=== PATIENT | male | born 1960 | race American Indian/Alaskan Native ===

== ENCOUNTER 2022-07-02 00:54 | Emergency (ER) | payer OTHER ==
--- NOTE | 2022-07-02 05:00 | Emergency Department Report ---
ED Abdominal Pain HPI - General Chief Complaint: Abdominal Pain Stated Complaint: ABDOMINAL PAIN Time Seen by Provider: 07/02/22 04:39 Source: patient Mode of arrival: Ambulatory Limitations: No Limitations - History of Present Illness Initial Comments: 62-year-old black male with no past medical history presents to the emergency department for evaluation of 2-day history of abdominal pain, nausea, vomiting, and fever. He states that he has had 2 episodes of vomiting in the past 2 days. He denies diarrhea, dysuria, and penile discharge. He states that pain is intermittent, feels like it moves around, and is 10 out of 10 at its worst. MD Complaint: abdominal pain -: Gradual, days(s) (2) Location: diffuse Radiation: none Migration to: no migration Severity: severe Severity scale (0 -10): 10 Quality: cramping, aching Consistency: intermittent Associated Symptoms: nausea, vomiting, fever. denies: diarrhea, chills, dysuria, hematemesis, hematochezia, melena, hematuria, anorexia, syncope - Related Data Previous Rx's Medication Instructions Recorded Last Taken Type Acetaminophen/Codeine [Tylenol 1 tab PO Q6H PRN #12 tab 07/02/22 Unknown Rx /Codeine # 3 tab] Ondansetron [Zofran Odt] 4 mg PO Q8HR PRN #12 tab.rapdis 07/02/22 Unknown Rx Allergies Allergy/AdvReac Type Severity Reaction Status Date / Time No Known Allergies Allergy Verified 07/02/22 01:51 ED Review of Systems ROS: Stated complaint: ABDOMINAL PAIN Other details as noted in HPI Comment: All other systems reviewed and negative Constitutional: fever. denies: chills ENT: denies: congestion Respiratory: denies: cough, shortness of breath Cardiovascular: denies: chest pain, palpitations Gastrointestinal: abdominal pain, nausea, vomiting. denies: diarrhea, hematemesis, melena, hematochezia Genitourinary: denies: urgency, dysuria, frequency, hematuria, discharge, testicular pain Musculoskeletal: denies: back pain Skin: denies: rash, lesions Neurological: denies: headache, weakness ED Past Medical Hx - Past Medical History Previous Medical History?: Yes - Surgical History Past Surgical History?: Yes - Social History Smoking Status: Unknown if ever smoked Substance Use Type: None - Medications Home Medications: Home Medications Medication Instructions Recorded Confirmed Last Taken Type Acetaminophen/Codeine [Tylenol 1 tab PO Q6H PRN #12 tab 07/02/22 Unknown Rx /Codeine # 3 tab] Ondansetron [Zofran Odt] 4 mg PO Q8HR PRN #12 tab.rapdis 07/02/22 Unknown Rx ED Physical Exam - General Limitations: No Limitations General appearance: alert, in no apparent distress - Head Head exam: Present: atraumatic, normocephalic - Eye Eye exam: Present: normal appearance. Absent: conjunctival injection, periorbital swelling, periorbital tenderness - ENT ENT exam: Present: normal exam - Neck Neck exam: Present: normal inspection, full ROM. Absent: tenderness, lymphadenopathy - Respiratory Respiratory exam: Present: normal lung sounds bilaterally. Absent: respiratory distress, wheezes, rales, rhonchi, stridor, chest wall tenderness - Cardiovascular Cardiovascular Exam: Present: tachycardia, normal heart sounds - GI/Abdominal GI/Abdominal exam: Present: soft, tenderness (Left lower quadrant), normal bowel sounds. Absent: distended, guarding, rebound - Extremities Exam Extremities exam: Present: normal inspection, full ROM, normal capillary refill. Absent: tenderness, pedal edema, joint swelling, calf tenderness - Back Exam Back exam: Present: normal inspection. Absent: CVA tenderness (R), CVA tenderness (L), paraspinal tenderness, vertebral tenderness - Neurological Exam Neurological exam: Present: alert, oriented X3, CN II-XII intact, normal gait - Psychiatric Psychiatric exam: Present: normal affect, normal mood - Skin Skin exam: Present: warm, dry, intact, normal color ED Course Vital Signs 07/02/22 01:46 Temperature 99.9 F H Pulse Rate 106 H Respiratory 18 Rate Blood Pressure 163/114 O2 Sat by Pulse 100 Oximetry ED Medical Decision Making - Lab Data Result diagrams: 07/02/22 04:46 07/02/22 04:46 - Radiology Data Radiology results: report reviewed, image reviewed CT abdomen and pelvis without contrast: FINDINGS: CT abdomen without contrast demonstrates normal appearance of the spleen, pancreas, kidneys, and adrenal glands. Gallbladder is present and without appreciable abnormality. Abdominal aorta is normal. There are a few hypodense masses within the liver. Without contrast it is difficult to determine if these could be metastases or cysts. Otherwise the liver is normal. Trace amount of free fluid is seen surrounding the liver. Within the right mid abdomen there is a soft tissue mass measuring approximately 7 cm in diameter. The mass is arising from the cecum. The mass is causing obstruction of the terminal ileum. The distal ileum is dilated with stool-like material noted throughout the ileum consistent with stasis. Additionally, there is normal-appearing appendix arising from the inferior aspect of the mass. 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 There are a few mildly enlarged lymph nodes surrounding this mass and in the adjacent mesentery. Small amount of loculated fluid is seen in the right lower quadrant slightly inferior to the cecal mass. CT pelvis demonstrates a small amount of free fluid between the seminal vesicles and rectum. No focal inflammatory change or adenopathy is seen within the pelvis. Visualized lung bases are grossly clear. Review of osseous structures is grossly unremarkable. IMPRESSION: 1. There is a 7 cm solid mass in the right mid abdomen which appears to be a mass arising from the cecum. 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 The mass is causing some degree of mechanical obstruction of the small bowel. The distal ileum contains stool- like material consistent with significant stasis. 2. There are several mildly enlarged lymph nodes throughout the right lower quadrant as well as a few nonspecific lesions within the liver. These findings are concerning for metastatic disease. Trace amount of free fluid is seen in the upper abdomen and pelvis as well. - Medical Decision Making 62-year-old black male with no past medical history presents to the emergency department for evaluation of 2-day history of abdominal pain, nausea, vomiting, and fever. He states that he has had 2 episodes of vomiting in the past 2 days. He denies diarrhea, dysuria, and penile discharge. He states that pain is intermittent, feels like it moves around, and is 10 out of 10 at its worst. Patient noted to have tenderness in the abdomen on exam. CT scan positive for cecal mass along with liver lesions. Case and CT scan was reviewed by Dr. Meier who stated that patient was okay to be discharged home to follow-up with oncology. Results were reviewed with patient and he was advised to follow-up with oncology as soon as possible. He was given name of several oncologist to try to call to set up an appointment. He is advised to return to the emergency department if she develops worsening abdominal pain, fever, worsening nausea vomiting, or inability to keep down food and drinks. He verbalizes understanding of and agreement with plan of care. Critical care attestation.: If time is entered above; I have spent that time in minutes in the direct care of this critically ill patient, excluding procedure time. ED Disposition Clinical Impression: Cecum mass, Liver lesion Disposition: 01 HOME / SELF CARE / HOMELESS Is pt being admited?: No Does the pt Need Aspirin: No Condition: Stable Instructions: Colon Mass, Adult Additional Instructions: Follow-up with oncology in the next 2 or 3 days for further evaluation and management. Return to the emergency department if you develop worsening pain, fever, worsening nausea vomiting, or inability to keep any food or liquids down. Prescriptions: Acetaminophen/Codeine [Tylenol /Codeine # 3 tab] 1 tab PO Q6H PRN #12 tab PRN Reason: Pain, Moderate (4-6) Ondansetron [Zofran Odt] 4 mg PO Q8HR PRN #12 tab.rapdis PRN Reason: Nausea And Vomiting Referrals: SUSI SOLIS MD [Staff Physician] - 3-5 Days ISABEL HIGH PA [Physician Clamp Operator] - 3-5 Days TORI MILLAN MD [Staff Physician] - 3-5 Days SAVANNAH URENA DO [Staff Physician] - 3-5 Days GISELA BROUSSARD MD [Staff Physician] - 3-5 Days Forms: Work/School Release Form(ED)
[2022-07-02 05:10] LABS: Hematocrit 33.6 % (35.5-45.6); Hemoglobin 10.8 gm/dl (11.8-15.2); Mean Corpuscular HGB Conc 32 % (32-34); Mean Corpuscular Volume 81 fl (84-94); Platelet Count 359 K/mm3 (140-440); Red Blood Count 4.15 M/mm3 (3.65-5.03); Red Cell Distribution Width 14.1 % (13.2-15.2)
[2022-07-02 05:28] LABS: Alanine Aminotransferase 9 units/L (7-56); Albumin 4.6 g/dL (3.9-5); BUN/Creatinine Ratio 17; Blood Urea Nitrogen 17 mg/dL (9-20); Calcium 9.1 mg/dL (8.4-10.2); Hemolysis Index 2
--- NOTE | 2022-07-02 05:40 | Cat Scan Report ---
CT abdomen pelvis wo con INDICATION / CLINICAL INFORMATION: fever, abdominal pain. TECHNIQUE: Axial CT imaging of abdomen and pelvis was obtained without contrast. Coronal and sagittal reformatte d imaging obtained and reviewed. All CT scans at this location are performed using CT dose reduction for ALARA by means of automated exposure control. COMPARISON: None available. FINDINGS: CT abdomen without contrast demonstrates normal appearance of the spleen, pancreas, kidneys, and adre nal glands. Gallbladder is present and without appreciable abnormality. Abdominal aorta is normal. Th ere are a few hypodense masses within the liver. Without contrast it is difficult to determine if the se could be metastases or cysts. Otherwise the liver is normal. Trace amount of free fluid is seen keys rrounding the liver. Within the right mid abdomen there is a soft tissue mass measuring approximately 7 cm in diameter. Th e mass is arising from the cecum. The mass is causing obstruction of the terminal ileum. The distal i leum is dilated with stool-like material noted throughout the ileum consistent with stasis. Additiona lly, there is normal-appearing appendix arising from the inferior aspect of the mass. 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 There are a few mildly enlarged lymph nodes surrounding this ma ss and in the adjacent mesentery. Small amount of loculated fluid is seen in the right lower quadrant slightly inferior to the cecal mass. CT pelvis demonstrates a small amount of free fluid between the seminal vesicles and rectum. No focal inflammatory change or adenopathy is seen within the pelvis. Visualized lung bases are grossly clear. Review of osseous structures is grossly unremarkable. IMPRESSION: 1. There is a 7 cm solid mass in the right mid abdomen which appears to be a mass arising from the ce cum. 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 The mass is causing some degree of m echanical obstruction of the small bowel. The distal ileum contains stool-like material consistent wi th significant stasis. 2. There are several mildly enlarged lymph nodes throughout the right lower quadrant as well as a few nonspecific lesions within the liver. These findings are concerning for metastatic disease. Trace am ount of free fluid is seen in the upper abdomen and pelvis as well. Signer Name: Anna Stewart MD Signed: 07/02/2022 5:36 AM Workstation Name: [id number]
[2022-07-02] MEDS ORDERED: oxyCODONE /ACETAMINOPHEN 5-325MG TAB PO ONE (06:03)
[2022-07-02] MEDS ORDERED: ONDANSETRON 4 MG ODT TAB PO ONE (06:03)
[2022-07-02 07:59] VITALS: BP 156/79
== END 2022-07-02 07:00 | disposition home or self-care (01) ==
LOC: ED 00:54
DX: K63.9 Disease of intestine, unspecified (principal); K76.9 Liver disease, unspecified; Z98.890 Other specified postprocedural states; Z79.899 Other long term (current) drug therapy
CPT/HCPCS: 36415; 74176; 80053; 83690; 85027; 99284; J3490; Q0162